=== PATIENT | female | born 1955 | race Caucasian/White ===

== ENCOUNTER 2022-06-26 10:02 | Emergency (ER) | payer MEDICARE, SELFPAY ==
[2022-06-26 10:47] VITALS: BP 142/82; PULSE 82; RESP 19; TEMP 36.7; O2SAT 98; BMI 50.8
--- NOTE | 2022-06-26 10:58 | EXP.UTC ---
Discharge Plan Disposition Patient Disposition: Home, Self-Care Condition: Good Prescriptions Prescriptions: New cefdinir 300 mg capsule 300 mg PO BID Qty: 20 0RF No Action tolterodine 4 mg capsule,extended release 24hr 4 mg PO BID Label Comments: TAKE ONE CAPSULE BY MOUTH TWICE A DAY lisinopril 40 mg tablet 40 mg PO DAILY Myrbetriq 50 mg tablet extended release 24 hr 50 mg PO DAILY Label Comments: TAKE ONE TABLET BY MOUTH EVERY DAY Referrals Follow up/Referrals: Keron Mchugh [Primary Care Provider] - See instructions Activity Restrictions/Add. Instructions Additional Instructions/Restrictions: *Increase fluids. Water not Soda or Tea *Start antibiotic immediately and be sure to take as ordered for the FULL length of time although you should start to see improvement over the next 48 hours *Be SURE to follow up anytime for new or worsening symptoms with your family doctor. AND in 48 hours for urine culture results with your family doctor, if you do not have a doctor then you may call back to the [facility] for urine culture results and further treatment. We do recommend that you choose and establish care with a Primary Care Physician. ?AND follow up with them ?in 10-14 days to repeat UA to ensure infection is resolved and blood no longer present *Be sure to let your PCP know that we sent urine cultures from the [facility] so they can follow up to ensure that you area the on the correct antibiotic Call your doctor office and make appointment for 48 hours (2 days from today) ?to follow up and get the results of your urine culture and further treatment Clinical Impressions Clinical Impression: UTI (urinary tract infection) Instructions Patient Instructions: DI for Urinary Tract Infection (UTI), Urinary Tract Infection Discharge ED Provider: Keyla Argueta [place] HPI General Stated complaint: Pain when urination Mode of Arrival: Ambulatory Source of Information: Patient Limitations: No Limitations Time Seen by Provider: 06/26/22 10:58 Description of Symptoms (Recalled from Triage Doc. by RN): pt comes in with c/o pressure and pain in bladder for 1 week HEENT Symptoms (Recalled from RN notes): No Resp Symptoms (Recalled from RN notes): No Skin Symptoms (Recalled from RN notes): No MS Symptoms (Recalled from RN notes): No Functional Status (Recalled from RN notes): n/a History of Present Illness Provider Complaint: Patient states that she is in [place] States that she has been having burning with urination and feeling of urgency and frequency States that she recently finished Macrobid but thinks it didnt clear it up all the way Related Data Home Medications Medication Instructions Recorded Confirmed lisinopril 40 mg tablet 40 mg PO DAILY High blood pressure 06/26/22 06/26/22 mirabegron 50 mg tablet,extended 50 mg PO DAILY incontinence 06/26/22 06/26/22 release 24 hr (Myrbetriq) tolterodine 4 mg capsule,extended 4 mg PO BID . 06/26/22 06/26/22 release 24 hr Previous Rx's Medication Instructions Recorded cefdinir 300 mg capsule 300 mg PO BID #20 caps 06/26/22 Allergies Allergy/AdvReac Type Severity Reaction Status Date / Time phenobarbital Allergy Verified 06/26/22 10:49 Sulfa (Sulfonamide Allergy Verified 06/26/22 10:49 Antibiotics) Worker's Comp Is this a Worker's Comp case?: No PFSH PFSH Social History (Updated 06/26/22 @ 10:49 by Nj Alvarado RN) Smoking Status: Smoker, status unknown alcohol intake: never current occupational status: disabled Travel in the last 8 weeks: None ROS Obtained: Yes All systems reviewed & no additional complaints except as documented and Yes Systems reviewed as appropriate & no additional complaints except as documented ENT Ears, Nose, Mouth, and Throat: Reports system reviewed and no additional complaints, except as documented and Reports as per HPI Cardiovascular Cardiovascular: Reports sy
[2022-06-26 11:09] VITALS: BP 142/82; PULSE 82; RESP 19; TEMP 36.7
[2022-06-26 12:24] LABS: Apearance,Urine Cloudy (Clear); Bilirubin,Urine Negative (Negative); Blood, Urine Trace (Negative); Color,Urine Dark Yellow (Yellow); Glucose,Urine (UA) Negative (Negative); Ketones,Urine Negative (Negative); Protein,Urine Negative (Negative); UTC Leukocyte Esterase,Urine Trace (Negative); UTC Nitrate,Urine Negative (Negative); Urobilinogen,Urine 0.2 EU/dl (0.2)
== END 2022-06-26 11:10 | disposition home or self-care (01) ==
PROVIDERS: Emergency Provider Nurse Practitioner; PCP Family Medicine
DX: N39.0 Urinary tract infection, site not specified (principal); B96.1 Klebsiella pneumoniae [K. pneumoniae] as the cause of diseases classified elsewhere
CPT/HCPCS: 81003; 87086; 87088; 87186; 99212; G0463

== ENCOUNTER 2024-03-29 20:37 | Emergency (ER) | payer MEDICARE, SELFPAY ==
[2024-03-29 20:00] VITALS: BP 182/83; PULSE 86; RESP 18; TEMP 36.7; O2SAT 95; BMI 51.3
--- NOTE | 2024-03-29 20:09 | ED_ITS ---
<Statement entered by Madison Rutledge DO - 03/30/24 00:11> I was consulted by the JAZMINE, and we discussed the complexity of the problems being addressed. I approved the treatment and management plan for this patient's care in the emergency department, thus performing a substantive portion of the medical decision making. Madison Rutledge DO Discharge Plan Disposition Patient Disposition: Still a Patient Condition: Good Prescriptions Prescriptions: No Action tolterodine 4 mg capsule,extended release 24hr 4 mg PO BID Patient Comments: TAKE ONE CAPSULE BY MOUTH TWICE A DAY lisinopril 40 mg tablet 40 mg PO DAILY Myrbetriq 50 mg tablet extended release 24 hr 50 mg PO DAILY Patient Comments: TAKE ONE TABLET BY MOUTH EVERY DAY cefdinir 300 mg capsule 300 mg PO BID Qty: 20 0RF Clinical Impressions Clinical Impression: Kidney stone on left side, Acute UTI Instructions Patient Instructions: DI for Acute Abdominal Pain Print Language Print Language: Pakistani Discharge ED Provider: Madison Rutledge General Adult HPI General Chief complaint: PAIN Stated complaint: left side abd pain, h/o renal calculi Time Seen by Provider: 03/29/24 20:44 Mode of Arrival: EMS Source of Information: Patient and EMS Limitations: No Limitations Description of Symptoms (Recalled from ER Triage Doc. by RN): Patient presents to ED via [facility] with complaints of left sided back pain. Patient states she has had multiple kidney stones in the past with 12 procedures in the past to remove them. Patient rates pain 8/10 at this time. History of Present Illness HPI narrative: Patient presents for evaluation of left flank pain. Patient has a 35-year history of kidney stones with multiple surgical interventions for same. She began having renal colic last night and it is progressed to the point where she was unable to drive due to the discomfort. She had to call EMS to bring her to the hospital. Patient does not live locally and she is visiting relatives and is from out of state. She reports that she has no dysuria no fever chills hemoptysis hematochezia melena nausea vomiting diarrhea Related Data Home Medications ?Medication ?Instructions ?Recorded ?Confirmed lisinopril 40 mg tablet 40 mg PO DAILY High blood pressure 06/26/22 06/26/22 mirabegron 50 mg tablet,extended 50 mg PO DAILY incontinence 06/26/22 06/26/22 release 24 hr (Myrbetriq) tolterodine 4 mg capsule,extended 4 mg PO BID . 06/26/22 06/26/22 release 24 hr Previous Rx's ?Medication ?Instructions ?Recorded cefdinir 300 mg capsule 300 mg PO BID #20 caps 06/26/22 Allergies Allergy/AdvReac Type Severity Reaction Status Date / Time phenobarbital Allergy Verified 06/26/22 10:49 Sulfa (Sulfonamide Allergy Verified 06/26/22 10:49 Antibiotics) [facility] Disclaimer: The information contained in this section may have been updated after the patient was seen, as this information can be updated by other users. Social History (Updated 06/26/22 @ 11:02 by Keyla Argueta APRN) Smoking Status: Former smoker alcohol intake: never current occupational status: disabled Travel in the last 8 weeks: None ROS Obtained: Yes Systems reviewed as appropriate & no additional complaints except as documented Physical Exam General General appearance: alert and in no apparent distress Head Head exam: atraumatic and normal inspection Eye Eye exam: Present normal appearance and PERRL ENT ENT exam: Present normal exam and normal oropharynx Respiratory Respiratory exam: Present normal lung sounds bilaterally and wheezes; Absent respiratory distress or accessory muscle use Cardiovascular Cardiovascular exam: Present regular rate, normal rhythm and normal heart sounds Abdominal Exam Abdominal exam: Present soft, tenderness (Left upper quadrant tenderness and left CVA tenderness to percussion) and normal bowel sounds; Absent guarding or rebound Extremities Exam Extremities exam: Present normal inspection and full ROM Back Exam Back exam: Present normal inspection and full ROM; Absent CVA tenderness (R) or CVA tenderness (L) Neurological Exam Neurological exam: Present alert and oriented X3 Medical Decision Making Medical Records Medical records reviewed: Yes I reviewed the patient's medical records. Jose Guadalupe Inquiry Pt receiving controlled substance: No Vital Signs: 03/29/24 20:00 Temperature 98.0 F Temperature Source Oral Pulse Rate [Right Radial] 86 Respiratory Rate 18 Blood Pressure [Right Arm] 182/83 H Blood Pressure Mean [Right Arm] 116 Blood Pressure Source [Right Arm] Automatic Cuff Blood Pressure Position [Right Arm] Sitting 02 Sat by Pulse Oximetry 95 Oxygen Delivery Method Room Air Lab Data Lab results reviewed: Yes I reviewed the patient's lab results. Lab Results 03/29/24 20:41: WBC 9.7, RBC 4.44, Hgb 13.7, Hct 41.2, MCV 92.8, MCH 30.9, MCHC 33.3, RDW 14.4, Plt Count 339, MPV 7.5, Neut % (Auto) 75.7, Lymph % (Auto) 16.3, [place] % (Auto) 4.0, Eos % (Auto) 3.7, Baso % (Auto) 0.3, Neut # (Auto) 7.3, Lymph # (Auto) 1.6, [place] # (Auto) 0.4, Eos # (Auto) 0.4, Baso # (Auto) 0.0, Sodium 141, Potassium 3.7, Chloride 107, Carbon Dioxide 27, Anion Gap 10.7, BUN 18 H, Creatinine 1.00, Estimated Creat Clear 45, Estimated GFR 55 L, Est GFR ( Amer) 67, Glucose 106 H, Calcium 9.2, Total Bilirubin 0.5, AST 51 H, ALT 45, Alkaline Phosphatase 80, Total Protein 7.6, Albumin 4.3, Globulin 3.3 H, Albumin/Globulin Ratio 1.3 03/29/24 23:10: Urine Color Yellow, Urine Appearance Slightly cloudy, Urine pH 6.0, Ur Specific [place] 1.010, Urine Protein Negative, Urine Glucose (UA) Negative, Urine Ketones Trace, Urine Blood 2+, Urine Nitrate Positive, Urine Bilirubin Negative, Urine Urobilinogen 0.2, Ur Leukocyte Esterase 1+ A, Urine RBC 5-10, Urine WBC 50-100, Ur Squamous Epith Cells 5-10, Urine Bacteria 2+ 03/29/24 20:41 03/29/24 20:41 Orders (Tests/Meds): ED MEDICATIONS Generic Name Dose Route Start Last Admin Trade Name Freq PRN Reason Stop Dose Admin Ceftriaxone Sodium 2 gm/ 100 mls @ 200 mls/hr 03/29/24 23:45 03/29/24 23:52 Sodium Chloride IV 03/30/24 00:14 200 mls/hr ONCE ONE Administration Sodium Chloride 10 ml 03/29/24 22:01 03/29/24 22:02 Sodium Chloride 0.9% 10ml Syr (Rad Only) IV 04/28/24 22:00 10 ml NEEDED PRN Administration Maintain IV Site Discontinued Medications Generic Name Dose Route Start Last Admin Trade Name Freq PRN Reason Stop Dose Admin Acetaminophen 1,000 mg 03/29/24 20:11 03/29/24 20:48 Acetaminophen 1,000mg/100ml Vial IV 03/29/24 20:12 1,000 mg ONCE ONE Administration Lactated Ringer's 1,000 mls @ 999 mls/hr 03/29/24 20:11 03/29/24 20:48 Lactated Ringer's 1000 Ml Bag IV 03/29/24 21:11 999 mls/hr .Q1H1M ONE Administration Iopamidol 75 ml 03/29/24 22:01 03/29/24 22:02 Iopamidol-370 (76%);100ml Bottle IV 03/29/24 22:02 75 ml ONCE ONE Administration Ketorolac Tromethamine 15 mg 03/29/24 20:11 03/29/24 20:48 Ketorolac 30mg/Ml Vial IV 03/29/24 20:12 15 mg ONCE ONE Administration Promethazine HCl 12.5 mg 03/29/24 20:15 03/29/24 20:48 Promethazine Hcl 25mg/Ml 1ml Vial IV 03/29/24 20:16 12.5 mg ONCE ONE Administration Sodium Chloride 25 ml 03/29/24 20:15 03/29/24 20:48 Sodium Chloride 0.9% 25ml Bag IV 03/29/24 20:16 25 ml ONCE ONE Administration ORDERS Category Date Time Status CT abdomen pelvis w con Stat Cat Scan 03/29/24 20:12 Completed CBC w/Auto Diff [Complete Blood Count Auto Diff] Stat Lab 03/29/24 20:41 Completed CMP [Comprehensive Metabolic Panel] Stat Lab 03/29/24 20:41 Completed UA [Urinalysis and Microscopic] Stat Lab 03/29/24 23:10 Completed UA [Urinalysis and Microscopic] Stat Lab 03/30/24 00:10 Ordered Urine Culture Stat Micro 03/29/24 23:10 Received Urine Culture(cathed specimen) Stat Micro 03/30/24 00:10 Ordered Medical Decision Narrative: In summary patient is a 68-year-old female who presents to the emergency department for evaluation of left flank pain. Patient is hemodynamically stable upon arrival, afebrile. Physical exam is remarkable for left upper quadrant and left flank tenderness to palpation/percussion without rebound or guarding or rigidity.. Differential diagnosis includes extracting or nonobstructing kidney stone versus urinary tract infectious disease etc. Initial workup will be conducted with hematologic labs urinalysis CT scan abdomen pelvis. Initial interventions include crystalloid bolus Toradol Tylenol. Initial workup reviewed by me reveals a left ureteral stone with hydroureter and hydronephrosis and her urinalysis shows infection. Upon repeat evaluation patient actually feels good and has had good response with initial intervention. Given this I had interactive discussion with the patient regarding management including transfer to facility with interventional neurology and the risks associated with not being transferred. Patient is agreeable to discharge however [facility] wants a catheter specimen before they accept. Given that patient has agreed and patient is handed off to Dr. Best pending urine results. Critical Care Critical Care Time Critical Care Time: No
--- NOTE | 2024-03-29 20:12 | CT_ITS ---
PROCEDURE INFORMATION: Exam: CT Abdomen And Pelvis With Contrast Exam date and time: 03/29/2024 9:55 PM Age: 68 years old Clinical indication: Abdominal pain; Flank; Left; Additional info: Abdominal pain history of kidney stones TECHNIQUE: Imaging protocol: Computed tomography of the abdomen and pelvis with contrast. Radiation optimization: All CT scans at this facility use at least one of these dose optimization techniques: automated exposure control; mA and/or kV adjustment per patient size (includes targeted exams where dose is matched to clinical indication); or iterative reconstruction. Contrast material: ISOVUE; Contrast volume: 75 ml; Contrast route: IV; COMPARISON: No relevant prior studies available. FINDINGS: Liver: Normal. No mass. Gallbladder and biliary ducts: Cholecystectomy Pancreas: Normal. No ductal dilation. Spleen: Normal. No splenomegaly. Adrenal glands: Normal. No mass. Kidneys and ureters: Mild left hydronephrosis and proximal ureteral dilatation secondary to a 2 mm stone in the proximal left ureter. Multiple cortical calcification in the left kidney. Stomach and bowel: Unremarkable. No obstruction. No mucosal thickening. Appendix: Appendectomy Intraperitoneal space: Unremarkable. No free air. No significant fluid collection. Vasculature: Unremarkable. No abdominal aortic aneurysm. Lymph nodes: Unremarkable. No enlarged lymph nodes. Urinary bladder: Unremarkable as visualized. Reproductive: Unremarkable as visualized. Bones/joints: Streak artifact from right hip arthroplasty limiting evaluation in the pelvis Soft tissues: Unremarkable. IMPRESSION: Mild left hydronephrosis and proximal ureteral dilatation secondary to a 2 mm stone in the proximal left ureter
[2024-03-29] MEDS: SODIUM CHLORIDE 0.9% 25ML BAG 25 ML IV (20:48)
[2024-03-29] MEDS: PROMETHAZINE HCL 25MG/ML 1ML VIAL 12.5 MG IV (20:48)
[2024-03-29] MEDS: LACTATED RINGERS 1000ML 1,000 ML 999 ML IV (20:48)
[2024-03-29] MEDS: ACETAMINOPHEN 1,000MG/100ML VIAL 1000 MG IV (20:48)
[2024-03-29] MEDS: KETOROLAC 30MG/ML VIAL 15 MG IV (20:48)
[2024-03-29 20:50] LABS: Basophils % 0.3 % (0.1-2.0); Eosinophils # 0.4 K/mm3 (0.0-0.4); Eosinophils % 3.7 % (0.1-12.0); Hematocrit 41.2 % (37.0-47.0); Hemoglobin 13.7 g/dL (12.2-16.2); Lymphocytes # 1.6 K/mm3 (0.7-4.5); Lymphocytes % 16.3 % (10-50); Mean Corpuscular HGB Conc 33.3 g/dL (31.8-35.4); Mean Corpuscular Hemoglobin 30.9 pg (27.0-31.2); Mean Corpuscular Volume 92.8 fl (81-99); Mean Platelet Volume 7.5 fl (7.4-10.4); Monocytes # 0.4 K/mm3 (0.1-1.0); Neutrophils # 7.3 K/mm3 (1.8-7.8); Neutrophils % 75.7 % (37.0-80.0); Platelet Count 339 K/mm3 (142-424); Red Blood Count 4.44 M/mm3 (4.20-5.40); Red Cell Distribution Width 14.4 % (11.5-17.5); White Blood Count 9.7 K/mm3 (4.8-10.8)
[2024-03-29 20:59] LABS: Chloride 107 mmol/L (98-107)
[2024-03-29 21:00] LABS: Albumin Level 4.3 g/dl (3.5-5.0); Potassium 3.7 mmoL/L (3.5-5.1); Sodium 141 mmol/L (136-145)
[2024-03-29 21:02] LABS: Blood Urea Nitrogen 18 mg/dl (7-17); Creatinine Clearance Estimated 45 mL/min (50-200); Estimated Glomerular Filt Rate 55 ml/min (>60); GFR (African American) 67 ML/MIN (>60)
[2024-03-29 21:03] LABS: Alanine Aminotransferase 45 U/L (12-78); Albumin/Globulin Ratio 1.3 (1.1-1.8); Alkaline Phosphatase 80 U/L (38-126); Anion Gap 10.7 mEq/L (5-15); Aspartate Amino Transferase 51 U/L (14-36); Bilirubin,Total 0.5 mg/dl (0.2-1.3); Calcium 9.2 mg/dl (8.4-10.2); Carbon Dioxide 27 mmol/L (22.0-30.0); Globulin 3.3 g/dL (1.3-3.2); Glucose 106 mg/dl (74-100); Total Protein,Serum 7.6 g/dl (6.3-8.2)
[2024-03-29] MEDS: SODIUM CHLORIDE 0.9% 10ML SYR (RAD ONLY) 10 ML IV (22:02)
[2024-03-29] MEDS: IOPAMIDOL-370 (76%);100ML BOTTLE 75 ML IV (22:02)
[2024-03-29 23:13] LABS: Microscopic, Urine URINE MICROSCOPIC (MICROSCOPIC)
[2024-03-29 23:28] LABS: Bilirubin,Urine Negative (Negative); Blood, Urine 2+ (Negative); Color,Urine YELLOW (Yellow); Glucose,Urine (UA) Negative (Negative); Ketones,Urine TRACE (Negative); Leukocyte Esterase,Urine 1+ (Negative); Nitrate,Urine POSITIVE (Negative); Protein,Urine Negative (Negative); Urobilinogen,Urine 0.2 EU/dl (0.2)
[2024-03-29 23:38] LABS: Appearance,Urine Slightly Cloudy (Clear)
[2024-03-29] MEDS: CEFTRIAXONE SODIUM 2 GM in 0.9 % SODIUM CHLORIDE 100 ML IV (23:52)
[2024-03-29 23:54] LABS: Bacteria,Urine 2+ /lpf; WBC,Urine 50-100 #/hpf (0-3)
--- NOTE | 2024-03-29 23:54 | PC.NURSE ---
spoke with transfer center regarding transfer pt. is speaking with at this time.
--- NOTE | 2024-03-30 00:12 | PC.NURSE ---
In and out cath completed at this time and sent to lab
[2024-03-30 00:14] LABS: Microscopic, Urine URINE MICROSCOPIC (MICROSCOPIC)
[2024-03-30 00:25] LABS: Appearance,Urine CLEAR (Clear); Bilirubin,Urine Negative (Negative); Blood, Urine 1+ (Negative); Color,Urine YELLOW (Yellow); Glucose,Urine (UA) Negative (Negative); Ketones,Urine 1+ (Negative); Leukocyte Esterase,Urine 1+ (Negative); Nitrate,Urine Negative (Negative); PH,Urine 5.5 (5.0-8.5); Protein,Urine Negative (Negative); Specific Gravity, Urine 1.015 (1.005-1.030); Urobilinogen,Urine 0.2 EU/dl (0.2)
[2024-03-30 00:47] LABS: Bacteria,Urine 1+ /lpf
[2024-03-30] MEDS: ALBUTEROL-HFA 90MCG/PUFF INHALER 8GM 2 PUFF IH (00:51)
--- NOTE | 2024-03-30 00:54 | PC.NURSE ---
Patient refused the space chamber for her albuterol inhaler
[2024-03-30 01:18] VITALS: BP 148/80; PULSE 82; RESP 18; TEMP 37.1; O2SAT 97
--- NOTE | 2024-03-31 09:14 | PC.NURSE ---
discussed prelim with , pt was given IV rocephin in the ER and transferred to , due to colony count, ntd
== END 2024-03-30 01:21 | disposition other institution (70) ==
PROVIDERS: Physician Assistant; Emergency Provider Emergency Medicine
DX: N13.0 Hydronephrosis with ureteropelvic junction obstruction (principal); N39.0 Urinary tract infection, site not specified; B96.29 Other Escherichia coli [E. coli] as the cause of diseases classified elsewhere; R10.32 Left lower quadrant pain; M54.59 Other low back pain; R10.12 Left upper quadrant pain; N13.4 Hydroureter
CPT/HCPCS: 74177; 80053; 81001; 85025; 87086; 87088; 87186; 96361; 96365; 96375; 99285; J0131; J0696; J1885; J2550; J7120; Q9967